=== PATIENT | male | born 1975 | race Caucasian/White ===

== ENCOUNTER 2019-02-15 09:47 | Emergency (ER) | payer BC ==
[~2019-02-15] VITALS: Ht 177.8 cm; Wt 113.4 kg
[2019-02-15 10:40] LABS: BASOPHILS ABSOLUTE AUTO 0.04 K/mm3 (0.00-0.23); BASOPHILS PERCENT AUTO 1 % (0-2); EOSINOPHILS ABSOLUTE AUTO 0.18 K/mm3 (0.00-0.68); EOSINOPHILS PERCENT AUTO 3 % (0-6); Hematocrit 46.4 % (37.0-53.0); Hemoglobin 15.5 g/dL (13.5-17.5); IMMATURE GRAN ABSOLUTE AUTO 0.03 K/mm3 (0.00-0.10); IMMATURE GRAN PERCENT AUTO 1 % (0-1); LYMPHOCYTES ABSOLUTE AUTO 1.36 K/mm3 (0.84-5.20); LYMPHOCYTES PERCENT AUTO 21 % (21-46); MONOCYTES ABSOLUTE AUTO 0.52 K/mm3 (0.16-1.47); MONOCYTES PERCENT AUTO 8 % (4-13); Mean Corpuscular HGB 28.7 pg (26.0-34.0); Mean Corpuscular HGB Conc 33.4 g/dL (31.5-36.5); Mean Corpuscular Volume 86 fL (80-100); Mean Platelet Volume 9.8 fL (9.1-12.4); NEUTROPHILS ABSOLUTE AUTO 4.23 K/mm3 (1.96-9.15); NEUTROPHILS PERCENT AUTO 67 % (41-73); Platelet Count 276 K/mm3 (150-400); RDW Coefficient Variation 12.5 % (11.7-14.2); RDW Standard Deviation 38.7 fL (35.1-46.3); White Blood Cell Count 6.36 K/mm3 (4.00-11.30)
[2019-02-15 11:03] LABS: Alanine Aminotransfer (ALT/SGP 36 U/L (12-78); Albumin/Globulin Ratio 1.1 (0.8-1.8); Alk Phos 63 U/L (50-136); Anion Gap 5 mmol/L (6-16); Aspartate Aminotrans (AST/SGOT 16 U/L (12-37); Bilirubin, Total 0.8 mg/dL (0.1-1.0); Blood Urea Nitrogen 13 mg/dL (8-24); Bun/Creatinine Ratio 18.3 (12.0-20.0); CO2, Blood 26 mmol/L (21-32); Calcium, Blood 8.4 mg/dL (8.5-10.1); Chloride, Blood 110 mmol/L (98-108); Creatinine, Blood 0.71 mg/dL (0.60-1.20); Globulin, Blood 3.5 g/dL (2.2-4.0); Glomerular Filtration Rate >60 (60-); Glucose, Blood 105 mg/dL (70-99); Potassium, Blood 4.1 mmol/L (3.5-5.5); Sodium, Blood 141 mmol/L (136-145); Total Protein, Blood 7.5 g/dL (6.4-8.2)
[2019-02-15] MEDS ORDERED: IBUP400 PO (12:57)
[2019-02-15] MEDS ORDERED: Percocet 5-3251 EACH PO (12:57)
[2019-02-16] MEDS ORDERED: CYCL10 PO (21:30)
== END 2019-02-15 13:04 | disposition home or self-care (01) ==
LOC: ER 09:47
PROVIDERS: Emergency Medicine
DX: S22.42XA Multiple fractures of ribs, left side, initial encounter for closed fracture (principal); W10.9XXA Fall (on) (from) unspecified stairs and steps, initial encounter; Z87.891 Personal history of nicotine dependence
CPT/HCPCS: 36415; 74176; 80053; 85025; 96361; 96374; 96375; 96376; 99284-25; J1170; J2405; J7120

== ENCOUNTER 2019-02-16 18:23 | Emergency (ER) | payer BC ==
[~2019-02-16] VITALS: Ht 177.8 cm; Wt 108.9 kg
[~2019-02-16 18:23] MED LIST: IBUP400 PO; Percocet 5-3251 EACH PO
[2019-02-16 19:56] LABS: BASOPHILS ABSOLUTE AUTO 0.04 K/mm3 (0.00-0.23); BASOPHILS PERCENT AUTO 0 % (0-2); EOSINOPHILS ABSOLUTE AUTO 0.06 K/mm3 (0.00-0.68); EOSINOPHILS PERCENT AUTO 1 % (0-6); Hematocrit 48.6 % (37.0-53.0); Hemoglobin 16.2 g/dL (13.5-17.5); IMMATURE GRAN ABSOLUTE AUTO 0.04 K/mm3 (0.00-0.10); IMMATURE GRAN PERCENT AUTO 0 % (0-1); LYMPHOCYTES ABSOLUTE AUTO 0.95 K/mm3 (0.84-5.20); LYMPHOCYTES PERCENT AUTO 8 % (21-46); MONOCYTES ABSOLUTE AUTO 0.62 K/mm3 (0.16-1.47); MONOCYTES PERCENT AUTO 5 % (4-13); Mean Corpuscular HGB 28.9 pg (26.0-34.0); Mean Corpuscular HGB Conc 33.3 g/dL (31.5-36.5); Mean Corpuscular Volume 87 fL (80-100); Mean Platelet Volume 9.7 fL (9.1-12.4); NEUTROPHILS ABSOLUTE AUTO 10.11 K/mm3 (1.96-9.15); NEUTROPHILS PERCENT AUTO 86 % (41-73); Platelet Count 314 K/mm3 (150-400); RDW Coefficient Variation 12.4 % (11.7-14.2); RDW Standard Deviation 39.4 fL (35.1-46.3); Red Blood Cell Count 5.61 M/mm3 (4.30-5.90); White Blood Cell Count 11.82 K/mm3 (4.00-11.30)
[2019-02-16] MEDS ORDERED: CYCL10 PO (21:30)
== END 2019-02-16 21:47 | disposition home or self-care (01) ==
LOC: ER 18:23
PROVIDERS: Emergency Medicine
DX: S22.42XA Multiple fractures of ribs, left side, initial encounter for closed fracture (principal); J90 Pleural effusion, not elsewhere classified; Z87.891 Personal history of nicotine dependence
CPT/HCPCS: 36415; 74177; 85025; 96374-59; 96375; 99284-25; J1170; J2405; J3010; Q9967

== ENCOUNTER → 2023-06-10 | Outpatient (CLI) | payer BC ==
[~2023-06-10] MED LIST changes: +CYCL10 PO
== END ==
LOC: LAB SHORT 13:49 → LAB 13:49
DX: N39.0 Urinary tract infection, site not specified (principal)
CPT/HCPCS: 87077; 87086; 87186

== ENCOUNTER 2025-02-12 11:46 | Day surgery (SDC) | payer BC ==
[~2025-02-12] VITALS: Ht 177.8 cm; Wt 118.7 kg
[~2025-02-12 11:46] MED LIST changes: +Lactated Ringer's 1,000 ML IV ONE; +Lidocaine HCl 2% 10 ML SDA ONE
[2025-02-12] MEDS ORDERED: CeFAZolin Sodium 2,000 MG VIAL ONE (12:07)
[2025-02-12] MEDS ORDERED: HYDCHL25 PO (12:19)
[2025-02-12] MEDS ORDERED: Avapro150 MG (12:23)
[2025-02-12] MEDS ORDERED: propofoL 20 ML IV ONE (12:24)
[2025-02-12] MEDS ORDERED: propofoL 0 ML IV ONE (12:28)
[2025-02-12] MEDS ORDERED: FentaNYL Citrate 50 MCG/ML 2 ML Injection ONE ×3 (12:29→15:34)
[2025-02-12] MEDS ORDERED: Midazolam HCL 1 MG/ML 5MLVIAL ONE (12:30)
[2025-02-12] MEDS ORDERED: Midazolam HCl 1MG / ML 2ML Vial ONE (12:31)
[2025-02-12] MEDS ORDERED: Lactated Ringer's 1,000 ML IV ONE ×2 (12:31→13:44)
[2025-02-12] MEDS ORDERED: Ropivacaine 0.5% HCL/PF 5 MG/ML 30ML Vial ONE ×2 (12:32→14:41)
--- NOTE | 2025-02-12 13:06 | NUR ---
02/12/25 1306 Joyce Valladares TIMEOUT FOR BRACHIAL PLEXUS BLOCK PROCEDURE: 1243 BRACHIAL PLEXUS BLOCK START AT 1257 BRACHIAL PLEXUS BLOCK END AT 125
[2025-02-12] MEDS ORDERED: Ondansetron HCl 2 MG / ML 2ML Vial ONE (13:10)
[2025-02-12] MEDS ORDERED: Dexamethasone Sod Phos 10 MG/ML 1ML VIAL ONE ×2 (13:10→13:42)
[2025-02-12] MEDS ORDERED: ePHEDrine Sulfate 50 MG/ML 1ML Injection ONE (13:22)
--- NOTE | 2025-02-12 14:59 | NUR ---
02/12/25 1459 Maurilio Lopez PAIN EXPERIENCING PAIN TO RIGHT ARM. JAVON CHEATHAM CRNA REPEATING BLOCK. GIVEN FENTANYL 50MCG IV AT 1455 FOR 8/10 RIGHT ARM PAIN PER ANESTHESIA.
[2025-02-12] MEDS ORDERED: Scopolamine Hydrobromide Patch ONE (16:10)
[2025-02-12] MEDS ORDERED: HYDROcodone 5-APAP 325 TAB ONE (16:23)
[2025-02-12 16:46] VITALS: BP 141/86
== END 2025-02-12 16:37 | disposition home or self-care (01) ==
LOC: ORSCSDS 11:46
PROVIDERS: Orthopaedic Surgery
PROC: 0LM30ZZ Reattachment of Right Upper Arm Tendon, Open Approach (ICD-10-PCS; principal; 2025-02-12 13:00)
DX: S46.211A Strain of muscle, fascia and tendon of other parts of biceps, right arm, initial encounter (principal); I10 Essential (primary) hypertension; Z87.891 Personal history of nicotine dependence; E66.9 Obesity, unspecified; Z68.37 Body mass index [BMI] 37.0-37.9, adult; Z79.899 Other long term (current) drug therapy
CPT/HCPCS: A9270; C1713; J0690; J1100; J2003; J2250; J2405; J2704; J2795; J3010; J7120

== ENCOUNTER 2025-09-08 11:34 | Emergency (ER) | payer BC ==
[~2025-09-08] VITALS: Ht 177.8 cm; Wt 108.9 kg
[~2025-09-08 11:34] MED LIST changes: +Avapro150 MG; +HYDCHL25 PO; -Lactated Ringer's 1,000 ML IV ONE; -Lidocaine HCl 2% 10 ML SDA ONE
[2025-09-08 12:05] LABS: BASOPHILS ABSOLUTE AUTO 0.03 K/mm3 (0.00-0.23); BASOPHILS PERCENT AUTO 0 % (0-2); EOSINOPHILS ABSOLUTE AUTO 0.04 K/mm3 (0.00-0.68); EOSINOPHILS PERCENT AUTO 0 % (0-6); Hematocrit 48.1 % (37.0-53.0); Hemoglobin 17.4 g/dL (13.5-17.5); IMMATURE GRAN ABSOLUTE AUTO 0.03 K/mm3 (0.00-0.10); IMMATURE GRAN PERCENT AUTO 0 % (0-1); LYMPHOCYTES ABSOLUTE AUTO 1.23 K/mm3 (0.84-5.20); LYMPHOCYTES PERCENT AUTO 13 % (21-46); MONOCYTES ABSOLUTE AUTO 0.69 K/mm3 (0.16-1.47); MONOCYTES PERCENT AUTO 7 % (4-13); Mean Corpuscular HGB Conc 36.2 g/dL (31.5-36.5); Mean Corpuscular Volume 82 fL (80-100); NEUTROPHILS ABSOLUTE AUTO 7.57 K/mm3 (1.96-9.15); NEUTROPHILS PERCENT AUTO 79 % (41-73); NRBC ABSOLUTE 0.00 K/mm3 (0.00-0.02); NRBC Auto 0.0 /100 WBC (0.0-0.2); Platelet Count 337 K/mm3 (150-400); RDW Coefficient Variation 12.4 % (11.7-14.2); RDW Standard Deviation 37.2 fL (35.1-46.3)
[2025-09-08 12:42] LABS: Alanine Aminotransfer (ALT/SGP 48.0 U/L (12-78); Albumin, Blood 4.3 g/dL (3.4-5.0); Albumin/Globulin Ratio 1.3 (0.8-1.8); Anion Gap 12.0 mmol/L (3-11); Aspartate Aminotrans (AST/SGOT 26.0 U/L (12-37); Bilirubin, Total 1.7 mg/dL (0.1-1.0); Blood Urea Nitrogen 16.0 mg/dL (8-24); CO2, Blood 24.0 mmol/L (21-32); Calcium, Blood 9.6 mg/dL (8.5-10.1); Chloride, Blood 99.0 mmol/L (98-108); Creatinine, Blood 0.69 mg/dL (0.60-1.20); Globulin, Blood 3.3 g/dL (2.2-4.0); Glucose, Blood 129.0 mg/dL (70-99); Potassium, Blood 3.1 mmol/L (3.5-5.5); Sodium, Blood 132.0 mmol/L (136-145); Total Protein, Blood 7.6 g/dL (6.4-8.2)
[2025-09-08] MEDS ORDERED: NS 1,000 ML IV SCH (12:55)
[2025-09-08] MEDS ORDERED: HydrALAZINE HCl 20 MG / ML 1ML Vial IV ONE (15:25)
[2025-09-08 15:53] VITALS: BP 168/102
[2025-09-08] MEDS ORDERED: METO10 PO (15:58)
== END 2025-09-08 18:22 | disposition home or self-care (01) ==
LOC: ER 11:34
PROVIDERS: Emergency Medicine
DX: E86.0 Dehydration (principal); E87.6 Hypokalemia; I10 Essential (primary) hypertension; Z88.8 Allergy status to other drugs, medicaments and biological substances; Z79.899 Other long term (current) drug therapy
CPT/HCPCS: 80053; 84484; 85025; 93005; 93010; 96361; 96374; 96375; 99284-25; A9270; J0360; J1790; J7030